=== PATIENT | male | born 1950 | race Caucasian/White ===

== ENCOUNTER → 2016-08-03 | Day surgery (SDC) | payer OTHER ==
[~2016-08-03] VITALS: Ht 172.7 cm; Wt 82.1 kg
[~2016-08-03] MED LIST: ATEN25TA PO; BUPIVACAINE HCL 0.25% 30 ML VIAL As Ordered ONE; GLYCOPYRROLATE INJ 0.2 MG/ML 2 ML VIAL As Ordered ONE; HYDROmorphone HCL 1 MG/ML SYRINGE (J1170) IV PRN; HYDROmorphone HCL 2 MG/ML 1ML VIAL (J1170) As Ordered ONE; KETOROLAC 30 MG/ML VIAL (J1885) IV PRN; KETOROLAC 60 MG/2 ML VIAL (J1885) As Ordered ONE; LIDOCAINE 1% SDV INJ 30 ML VIAL As Ordered ONE; LR 1,000 ML IV ONE; LR 1,000 ML IV SCH; MIDAZOLAM INJ 2 MG/2 ML VIAL (J2250) As Ordered ONE; NEOSTIGMINE 1MG/ML 5 ML SYRINGE (J2710) As Ordered ONE; NORCO, ANEXSIA 5/325MG TABLET (HYDROcodone/ACETAMINOPHEN) PO PRN; ONDANSETRON 4MG/2ML VIAL (J2405) As Ordered ONE; ONDANSETRON 4MG/2ML VIAL (J2405) IV PRN; PERCOCET 5MG/325MG TAB PO PRN; PROPOFOL 200 MG/20 ML VIAL As Ordered ONE; ROCURONIUM BROMIDE 50 MG/5 ML VIAL As Ordered ONE; dexameTHASONE 4 MG/ML 1ML VIAL (J1100) As Ordered ONE; fentaNYL 100 MCG/2 ML INJECTION (J3010) IV PRN; fentaNYL 250 MCG/5 ML INJECTION (J3010) As Ordered ONE
--- NOTE | 2016-08-03 14:59 | ROOPDOC ---
[facility] Report Of Operation Report of Operation DATE OF PROCEDURE: 08/03/16 PREPROCEDURE DIAGNOSES: left inguinal hernia, possible right inguinal hernia, umbilical hernia POSTPROCEDURE DIAGNOSES: left direct inguinal hernia, umbilical hernia PROCEDURE: Robotic assisted laparoscopic left inguinal hernia repair, umbilical hernia repair (primary closure) SURGEON: Elbert Goncalves MD TRAFFIC ENGINEERING DIRECTOR: Cee Trinidad NP ANESTHESIA: general anesthesia ESTIMATED BLOOD LOSS: Approximately 10 mL. COMPLICATIONS: none REMARKS: direct inguinal hernia defect found on left side, moderate size, no peritoneal/fascial defect on right side side. small 2 cm defect at umbilicus PROCEDURE NOTE: Patient has a symptomatic left groin hernia, also a small minimally symptomatic umbilical hernia. On my preop exam, there was a possibility of right inguinal hernia DESCRIPTION OF PROCEDURE: . Patient was brought to the operating room, placed supine on the operating table. Compression boots placed in both lower extremities for DVT prophylaxis. After adequate general anesthesia started, he was placed on a lithotomy position. A marsh catheter placed without difficulty. His abdomen and groin/ pelvic area then prepped and draped in the usual sterile fashion. After a surgical timeout we began our surgery. Entry to the abdomen done through a curvilinear incision underneath his umbilical skin cleft. The umbilicus was dissected free of the fascia. The hernia sac was opened up. An 8.5 mm camera port was then inserted under direct vision into the abdominal cavity. CO2 insufflation started to pressure 15 mmHg. the 8 mm robotic laparoscopic was inserted into the abdomen. The insertion site was inspected for injury and none was found. Patient was then positioned on a Trendelenburg position with the left side tilted upwards for adequate view of the hernia defect. 2 working ports placed to the right and left of the umbilicus along the same line. The da Ralph robot to our was then positioned in between the patient's legs and the trochars docked onto the robot. I then unscrubbed and to control of the camera and the laparoscopic instruments at the surgeon's console. An approximately 2 cm sized direct hernia fascial defect was found on the left side. On the inferior portion of the hernia is the sigmoid colon coursing and slightly adhered to it. Over to the right side peritoneal or fascial defect. Palpating at the area shows possible loose preperitoneal fat tissue over the area with no associated hernia. The sigmoid colon was dissected away from the left hernia defect. The peritoneum was opened up about 3 cm above the superior edge of the fascial defect of the inguinal hernia starting at the medial umbilical ligament going in an arc-like fashion laterally towards the level of the anterior superior iliac spine. The hernia sac and preperitoneal fat contents of the direct hernia was reduced back into the abdomen. This was then dissected mostly bluntly away from the abdominal wall. We explored the contents of the inguinal canal and found no hernia nor cord ipoma. The peritoneum was from the vas deferens and testicular vessels down to the level of the iliopubic tract. The preperitoneal space was dissected medially to expose the pubic tubercle up towards the symphysis pubis. The remaining areolar fibers were bluntly dissected away from the abdominal wall to create space for the mesh. After fully dissecting the preperitoneal space, we checked for adequate hemostasis. The direc hernia defect was closed using 2-0V LOC in a running fashion while anchoring this to the pubic tubercle. A large 3-D Max light mesh was chosen. This was rolled tightly placed through the laparoscopic port into the abdomen. This was positioned in the preperitoneal space abutting the abdominal wall to adequately cover the direct as well as indirect hernia space. I made sure the mesh was laying flat on the abdominal wall. This was secured onto the pubic tubercle with a single stitch of 2-0 Vicryl. Again after checking for hemostasis the preperitoneal space was then closed by suturing the peritoneal incision using a running stitch of 2-0V LOC. I scrubbed back in. The abdomen was deflated, all ports were removed. We continued dissecting the fascial edges of the subcutaneous tissue and umbilical skin cleft. The rest of the hernia sac and excess peritoneum was trimmed down to the fascial defect. This roughly measures about 2.5 cm transversely. The umbilical hernia fascial defect was then closed with 0 Ethibond in horizontal mattress fashion. The umbilical skin incisions were closed in layers with 3-0 Vicryl at the subcutaneous and dermal area. All skin incisions closed with 4-0 Monocryl in subcuticular fashion. Dermabond was then used for wound coverage. Patient was then promptly awakened, his Marsh catheter removed, extubated and brought to recovery room stable. All counts of sponges and instruments were verified correct. ARNOLDO GONCALVES MD August 03, 2016 14:36
[2016-08-03 17:10] VITALS: BP 128/65
== END | disposition home or self-care (01) ==
LOC: M SDC 10:24
PROVIDERS: ATTEND Surgery
DX: K40.90 Unilateral inguinal hernia, without obstruction or gangrene, not specified as recurrent (principal); K42.9 Umbilical hernia without obstruction or gangrene; I10 Essential (primary) hypertension; G47.30 Sleep apnea, unspecified; Z85.46 Personal history of malignant neoplasm of prostate; Z92.3 Personal history of irradiation; F17.210 Nicotine dependence, cigarettes, uncomplicated
CPT/HCPCS: 49585; 49650; C1781; J0690; J1100; J1170; J1885; J2250; J2405; J2710; J3010

== ENCOUNTER 2017-04-05 07:57 | Day surgery (SDC) | payer MEDICARE, OTHER ==
[~2017-04-05 07:57] MED LIST changes: -ATEN25TA PO; -BUPIVACAINE HCL 0.25% 30 ML VIAL As Ordered ONE; -GLYCOPYRROLATE INJ 0.2 MG/ML 2 ML VIAL As Ordered ONE; -HYDROmorphone HCL 1 MG/ML SYRINGE (J1170) IV PRN; -HYDROmorphone HCL 2 MG/ML 1ML VIAL (J1170) As Ordered ONE; -KETOROLAC 30 MG/ML VIAL (J1885) IV PRN; -KETOROLAC 60 MG/2 ML VIAL (J1885) As Ordered ONE; -LIDOCAINE 1% SDV INJ 30 ML VIAL As Ordered ONE; -LR 1,000 ML IV ONE; -LR 1,000 ML IV SCH; -MIDAZOLAM INJ 2 MG/2 ML VIAL (J2250) As Ordered ONE; -NEOSTIGMINE 1MG/ML 5 ML SYRINGE (J2710) As Ordered ONE; -NORCO, ANEXSIA 5/325MG TABLET (HYDROcodone/ACETAMINOPHEN) PO PRN; -ONDANSETRON 4MG/2ML VIAL (J2405) As Ordered ONE; -ONDANSETRON 4MG/2ML VIAL (J2405) IV PRN; -PERCOCET 5MG/325MG TAB PO PRN; -PROPOFOL 200 MG/20 ML VIAL As Ordered ONE; +PROPOFOL 500 MG/50 ML VIAL As Ordered; -ROCURONIUM BROMIDE 50 MG/5 ML VIAL As Ordered ONE; -dexameTHASONE 4 MG/ML 1ML VIAL (J1100) As Ordered ONE; -fentaNYL 100 MCG/2 ML INJECTION (J3010) IV PRN; -fentaNYL 250 MCG/5 ML INJECTION (J3010) As Ordered ONE
[2017-04-05] MEDS: NS 1,000 ML IV (08:00)
[2017-04-05] MEDS ORDERED: LIDOCAINE 2% INJ 100 MG/5 ML SDV (FOR ANES.) As Ordered (08:10)
[2017-04-05] MEDS ORDERED: GLYCOPYRROLATE INJ 0.2 MG/ML 2 ML VIAL As Ordered (09:03)
== END 2017-04-05 10:05 | disposition home or self-care (01) ==
LOC: M OPP 07:57
DX: Z12.11 Encounter for screening for malignant neoplasm of colon (principal); Z86.010 Personal history of colon polyps; D12.3 Benign neoplasm of transverse colon; D12.5 Benign neoplasm of sigmoid colon; K62.1 Rectal polyp; K64.8 Other hemorrhoids; K57.30 Diverticulosis of large intestine without perforation or abscess without bleeding; R12 Heartburn; K44.9 Diaphragmatic hernia without obstruction or gangrene; K31.89 Other diseases of stomach and duodenum; K21.9 Gastro-esophageal reflux disease without esophagitis; I10 Essential (primary) hypertension; M19.90 Unspecified osteoarthritis, unspecified site; M54.9 Dorsalgia, unspecified; Z85.46 Personal history of malignant neoplasm of prostate; Z92.3 Personal history of irradiation; L44.0 Pityriasis rubra pilaris; F17.210 Nicotine dependence, cigarettes, uncomplicated; Z79.899 Other long term (current) drug therapy; Z80.0 Family history of malignant neoplasm of digestive organs
CPT/HCPCS: 45385

== ENCOUNTER → 2017-09-08 | Day surgery (SDC) | payer MEDICARE, OTHER ==
[~2017-09-08] MED LIST changes: +KETOROLAC 30 MG/ML VIAL (J1885) IV; +KETOROLAC 60 MG/2 ML VIAL (J1885) As Ordered; +LIDOCAINE 2% INJ 100 MG/5 ML SDV (FOR ANES.) As Ordered; +MIDAZOLAM INJ 2 MG/2 ML VIAL (J2250) As Ordered; +NORCO, ANEXSIA 5/325MG TABLET (HYDROcodone/ACETAMINOPHEN) As Ordered; +NORCO, ANEXSIA 5/325MG TABLET (HYDROcodone/ACETAMINOPHEN) PO; +ONDANSETRON 4MG/2ML VIAL (J2405) As Ordered; +ONDANSETRON 4MG/2ML VIAL (J2405) IV; +PROPOFOL 200 MG/20 ML VIAL As Ordered; -PROPOFOL 500 MG/50 ML VIAL As Ordered; +fentaNYL 100 MCG/2 ML INJECTION (J3010) As Ordered
[2017-09-08] MEDS: LR 1,000 ML IV (10:13)
[2017-09-08] MEDS: LIDOCAINE W/EPINEPHRINE 1% 20ML VIAL As Ordered (11:40)
[2017-09-08] MEDS: LIDOCAINE 1% SDV INJ 30 ML VIAL As Ordered (11:40)
[2017-09-08] MEDS: NORCO, ANEXSIA 5/325MG TABLET (HYDROcodone/ACETAMINOPHEN) PO (12:34)
== END | disposition home or self-care (01) ==
LOC: M SDC 08:53
DX: L02.216 Cutaneous abscess of umbilicus (principal); K42.9 Umbilical hernia without obstruction or gangrene; K21.9 Gastro-esophageal reflux disease without esophagitis; I10 Essential (primary) hypertension; E78.00 Pure hypercholesterolemia, unspecified; Z85.46 Personal history of malignant neoplasm of prostate; Z79.899 Other long term (current) drug therapy
CPT/HCPCS: 11042